=== PATIENT | female | born 1995 ===

== ENCOUNTER 2025-01-21 09:42 | Outpatient (CLI) | payer OTHER | END 2025-01-21 09:43 | disposition home or self-care (01) | LOC: PRENATAL 09:42 | PROVIDERS: ATTEND Obstetrics & Gynecology Maternal & Fetal Medicine | DX: O44.00 Complete placenta previa NOS or without hemorrhage, unspecified trimester (principal); Z3A.23 23 weeks gestation of pregnancy ==

== ENCOUNTER 2025-03-23 13:31 | Outpatient (CLI) | payer OTHER | END 2025-03-23 13:34 | disposition home or self-care (01) | LOC: PRENATAL 13:31 | DX: O26.849 Uterine size-date discrepancy, unspecified trimester (principal); O36.8199 Decreased fetal movements, unspecified trimester, other fetus; O99.019 Anemia complicating pregnancy, unspecified trimester; Z3A.33 33 weeks gestation of pregnancy ==